=== PATIENT | female | born 1965 ===

== ENCOUNTER 2017-08-28 05:10 | Day surgery (SDC) | payer OTHER ==
[~2017-08-28 05:10] MED LIST: BUSPIRONE HCL10 MG PO; CLONAZEPAM2 M1 PO; GEODON40 MG PO; INDERAL LA80 MG PO; LEXAPR PO; METFORMIN HCL750 MG PO; SYNTHROID75 MCG PO; ZOCOR20 MG PO
[2017-08-28] MEDS ORDERED: RECTICARE30 GM TOP (08:40)
[2017-08-28] MEDS ORDERED: PERCOCET 5-3251 EACH PO (08:40)
== END 2017-08-28 12:00 | disposition home or self-care (01) ==
LOC: CIR.AMB 05:10
DX: K60.1 Chronic anal fissure (principal); K62.89 Other specified diseases of anus and rectum; K59.4 Anal spasm

== ENCOUNTER 2017-10-21 12:48 | Emergency (ER) | payer OTHER ==
[~2017-10-21] VITALS: Ht 157.5 cm; Wt 77.1 kg
[~2017-10-21 12:48] MED LIST changes: +PERCOCET 5-3251 EACH PO; +RECTICARE30 GM TOP
== END 2017-10-21 17:48 | disposition home or self-care (01) ==
LOC: ER 12:48
DX: K62.89 Other specified diseases of anus and rectum (principal)

== ENCOUNTER 2017-10-26 05:54 | Day surgery (SDC) | payer OTHER ==
[~2017-10-26] VITALS: Ht 157.5 cm; Wt 77.1 kg
[2017-10-26] MEDS ORDERED: PERCOCET 5-3251 EACH PO (15:41)
[2017-10-26] MEDS ORDERED: RECTICARE30 GM TOP (15:41)
== END 2017-10-26 17:00 | disposition home or self-care (01) ==
LOC: ER 05:54 → SEC-K 08:51 → CIR.AMB 14:10
DX: K61.0 Anal abscess (principal); K60.3 Anal fistula